=== PATIENT | female | born 1955 | race Caucasian/White ===

== ENCOUNTER 2017-03-15 08:49 | Emergency (ER) | payer SELFPAY ==
[~2017-03-15] VITALS: Ht 152.4 cm; Wt 71.0 kg
[~2017-03-15 08:49] MED LIST: ASPI-664 PO; METO-429 PO; RANO500T2 PO
[2017-03-15 08:51] VITALS: Ht 152.4 cm; Wt 71.0 kg
[2017-03-15 09:21] LABS: URINE BLOOD (Dip) POC 3+ (NEGATIVE)
[2017-03-15] MEDS ORDERED: SUMA100T9 PO (09:22)
[2017-03-15] MEDS ORDERED: ONDANSETRON 4 MG INJ IV STA (09:37)
[2017-03-15] MEDS ORDERED: morphine 2 MG INJ IV STA (09:37)
[2017-03-15] MEDS ORDERED: SOD CHLORIDE 0.9% 1,000 ML IV STA (09:37)
[2017-03-15 09:46] LABS: ADD UMIC YES; URINE BILIRUBIN (Dip) NEGATIVE (NEGATIVE); URINE BLOOD (Dip) 3+ (NEGATIVE); URINE COLOR DK. RED (YELLOW); URINE GLUCOSE (Dip) NEGATIVE (NEGATIVE); URINE KETONES (Dip) TRACE (NEGATIVE); URINE LEUKOCYTE ESTERASE (Dip) 2+ (NEGATIVE); URINE NITRITE (Dip) POSITIVE (NEGATIVE); URINE TOTAL PROTEIN (Dip) 4+ (NEGATIVE); URINE UROBILINOGEN (Dip) 1.0 E.U./dL (0.1-1.0)
[2017-03-15 09:55] LABS: ADD SCAN DIFF NO
[2017-03-15 09:57] LABS: BASOPHILS % 0.3 % (0.0-2.0); EOSINOPHILS # 0.1 10^3/ul (0.0-0.5); EOSINOPHILS % 1.1 % (0.0-7.0); HEMATOCRIT 36.3 % (37.0-47.0); HEMOGLOBIN 12.2 g/dl (12.0-16.0); LYMPHOCYTES # 1.3 10^3/ul (0.8-2.9); LYMPHOCYTES % 17.2 % (15.0-51.0); MEAN CORPUSCULAR HEMOGLOBIN 33.3 pg (29.0-33.0); MEAN CORPUSCULAR HGB CONC 33.6 g/dl (32.0-37.0); MEAN CORPUSCULAR VOLUME 99.2 fl (82.0-101.0); MEAN PLATELET VOLUME 10.2 fl (7.4-10.4); MONOCYTE # 0.2 10^3/ul (0.3-0.9); MONOCYTES % 3.3 % (0.0-11.0); NEUTROPHIL # 5.7 10^3/ul (1.6-7.5); NEUTROPHILS % 77.8 % (39.0-77.0); PLATELET COUNT 248 10^3/UL (140-415); RED BLOOD COUNT 3.66 10^6/ul (4.20-5.40); RED CELL DISTRIBUTION WIDTH 11.5 % (11.5-14.5); WHITE BLOOD COUNT 7.3 10^3/ul (4.8-10.8)
[2017-03-15 09:57] LABS: BACTERIA,URINE FEW; URINE RBCS >200 /HPF (0)
[2017-03-15 10:16] LABS: ALBUMIN 4.6 g/dl (3.3-4.9); ALBUMIN/GLOBULIN RATIO 1.64; BILIRUBIN,INDIRECT 0.2 mg/dl (0-1.1); BILIRUBIN,TOTAL 0.2 mg/dl (0.2-1.3); CALCIUM 9.1 mg/dl (8.4-10.2); CREATININE 0.88 mg/dl (0.44-1.00); TOTAL PROTEIN 7.4 g/dl (6.1-8.1)
[2017-03-15] MEDS ORDERED: DICLOFENAC SODIUM 37.5 MG/ML VIAL IV STA (10:40)
[2017-03-15] MEDS ORDERED: IOHEXOL 300MG/ML 150 ML BTL ONE (11:04)
[2017-03-15] MEDS ORDERED: SOD CHLORIDE 0.9% 100 ML ONE (11:04)
[2017-03-15] MEDS ORDERED: CEFTRIAXONE 1 GM/50 ML (PMX) 50 ML IVPB ONE (11:30)
--- NOTE | 2017-03-15 11:50 | RADRPT ---
PROCEDURE: CT Abdomen and Pelvis without and with contrast. CLINICAL INDICATION: Right flank pain with hematuria. History of stones. TECHNIQUE: CT scan of the abdomen and pelvis with and without contrast was performed on a multidet pepito high-resolution CT scanner. The patient was scanned both before and following the uncomplicat ed intravenous administration of 100 cc of Omnipaque-300. Coronal and sagittal reformatted images we re obtained from the axial source images. Images were reviewed on a high-resolution PACS workstation . The total exam CTDI equals 16.45, and 15.49 mGy and the total exam DLP equals 1794.52 mGy-cm. One or more of the following dose reduction techniques were used: Automated exposure control. Adjustment of the mA and/or kV according to patient size. Use of iterative reconstruction technique. COMPARISON: None. FINDINGS: CT abdomen: The lung bases are clear. The heart size is normal, without pericardial thickening or effusion. Th e liver is normal in size and density without focal mass or intrahepatic biliary dilatation. The sp regi is normal in size and homogeneous in density. The stomach is partially collapsed, but is gross ly unremarkable. The pancreas as visualized is normal. The gallbladder is surgically absent. There is mild prominence of the intrahepatic and extrahepatic biliary ducts. Common bile duct measures u p to 9 mm. The adrenal glands are symmetric and normal. The kidneys are symmetrically unremarkable as well. No renal calculus or obstructive uropathy or mass lesion is seen. The aorta is of normal caliber. There is no retroperitoneal lymphadenopathy. The riya hepatis reg ion is clear. The bowel and mesentery, as visualized, are equally unremarkable. CT pelvis: The small bowel loops situated within the pelvis are unremarkable. There is a retroverted uterus. T here is mild abnormal wall thickening and enhancement of the urinary bladder. The pelvic sidewalls a nd inguinal regions are clear. The sigmoid colon and rectum are unremarkable. No mass, lymphadenop athy, or free fluid is seen. No acute inflammation is seen. There is grade 1 anterolisthesis of L4 on L5 related to marked facet arthropathy. There is severe right-sided neural foraminal stenosis at L4-L5 related to disk herniation. The surrounding osseous structures are remarkable for degenerativ e spondylosis of the spine. No osteolytic or osteoblastic lesion is detected. IMPRESSION: 1. No urolithiasis. No hydronephrosis. 2. Mild abnormal wall thickening of the urinary bladder which is accentuated by the under distension . This is nonspecific but can be seen with cystitis. 3. Mild prominence of the biliary tree which could be physiologic status post cholecystectomy. 4. Mild anterolisthesis of L4 on L5 related to marked facet arthropathy. There is a broad-based ri ght foraminal disk protrusion with probable mass effect upon the traversing right L5 nerve root and impingement upon the exiting right L4 nerve root in the neural foramen. Consider MRI L-spine for fu rther evaluation. RPTAT: BB .Silvia Jones MD, MD Date Time Electronically viewed and signed by .Silvia Jones MD, MD on 03/15/2017 11:49 .O/
[2017-03-15] MEDS ORDERED: CIPR500T4 PO (13:13)
[2017-03-15] MEDS ORDERED: PHEN-537 PO (13:13)
[2017-03-15] MEDS ORDERED: HYDR-906 PO (13:13)
[2017-03-15] MEDS ORDERED: NAPR-688 PO (13:13)
--- NOTE | 2017-03-15 13:38 | ERD ---
ER Documentation Chief Complaint Date/Time DATE: 03/15/17 TIME: 13:32 Chief Complaint LOWER ABDOMINAL PAIN STARTED YESTERDAY; BACK PAIN X 4 MONTHS HPI This 61-year-old female presents emergency room with suprapubic pain and urinary frequency. She also has burning on urination. She has right flank pain with a history of kidney stones as well. Denies fever and chills. She has no nausea and has not vomited. ROS All systems reviewed and are negative except as per history of present illness. Medications Home Meds Active Scripts Hydrocodone/Acetaminophen ([place] 5-325 Tablet) 1 Each Tablet, 1 EACH PO Q6, #14 TAB Prov:CLEMENTINA ELLIOTT DO 03/15/17 Naproxen* (Naproxen*) 500 Mg Tablet, 500 MG PO BID Y for PAIN, #20 TAB Prov:CLEMENTINA ELLIOTT DO 03/15/17 Phenazopyridine Hcl* (Pyridium*) 100 Mg Tab, 100 MG PO TID Y for URINARY PAIN, # 8 TAB Prov:EARLCLEMENTINA DO 03/15/17 Ciprofloxacin Hcl* (Ciprofloxacin Hcl*) 500 Mg Tablet, 500 MG PO BID for 10 Days , TAB Prov:CLEMENTINA ELLIOTT DO 03/15/17 Reported Medications Sumatriptan Succinate* (Imitrex*) 100 Mg Tablet, 100 MG PO BID Y for MIGRAINE HEADACHE, TAB May repeat after 2 hours if needed; MAX 200 mg/24 hours 03/15/17 Aspirin* (Aspirin* EC) 81 Mg Tablet.dr, 81 MG PO DAILY, TAB 04/13/16 Metoprolol Tartrate* (Lopressor*) 50 Mg Tab, 50 MG PO BID, #60 TAB 04/13/16 Discontinued Scripts Ranolazine* (Ranexa*) 500 Mg Tab.sr.12h, 500 MG PO Q12 for 30 Days, TAB Prov:CANDY WHEELER 04/14/16 Allergies Allergies: Coded Allergies: Tetracyclines (Verified Allergy, Unknown, 03/15/17) dopamine (Verified Allergy, Unknown, 03/15/17) PMhx/Soc History of Surgery: Yes (CHOLECYSTECTOMY, HERNIA REPAIR) Anesthesia Reaction: No Hx Neurological Disorder: No Hx Respiratory Disorders: No Hx Cardiac Disorders: No Hx Psychiatric Problems: No Hx Miscellaneous Medical Probl: Yes (KIDNEY STONE 4 YRS AGO) Hx Alcohol Use: No Hx Substance Use: No Hx Tobacco Use: No Smoking Status: Never smoker Physical Exam Vitals Vital Signs Date Time Temp Pulse Resp B/P Pulse Ox O2 Delivery O2 Flow Rate FiO2 03/15/17 08:51 98.2 83 19 136/81 100 Physical Exam Const: [] Head: Atraumatic Eyes: Normal Conjunctiva ENT: Normal External Ears, Nose and Mouth. Neck: Full range of motion..~ No meningismus. Resp: Clear to auscultation bilaterally Cardio: Regular rate and rhythm, no murmurs Abd: Soft, non tender, non distended. Normal bowel sounds Skin: No petechiae or rashes Back: No midline or flank tenderness Ext: No cyanosis, or edema Neur: Awake and alert Psych: Normal Mood and Affect Result Diagram: 03/15/1736 03/15/17 0936 Results 24 hrs Laboratory Tests Test 03/15/17 09:15 03/15/17 09:24 03/15/17 09:36 Urine Color DK. RED Urine Clarity CLOUDY Urine pH 7.5 Urine Specific [place] 1.015 Urine Ketones TRACE Urine Nitrite POSITIVE Urine Bilirubin NEGATIVE Urine Urobilinogen 1.0 E.U./dL Urine Leukocyte Esterase 2+ Urine Microscopic RBC >200/HPF Urine Microscopic WBC 2-5/HPF Urine Epithelial Cells FEW Urine Bacteria FEW Urine Hemoglobin 3+ Urine Glucose NEGATIVE% Urine Total Protein 4+ Bedside Urine pH (LAB) 7.0 Bedside Urine Protein (LAB) 3+ Bedside Urine Glucose (UA) Negative Bedside Urine Ketones (LAB) Trace Bedside Urine Blood 3+ Bedside Urine Nitrite (LAB) Positive Bedside Urine Leukocyte Esterase (L Trace White Blood Count 7.310^3/ul Red Blood Count 3.6610^6/ul Hemoglobin 12.2g/dl Hematocrit 36.3% Mean Corpuscular Volume 99.2fl Mean Corpuscular Hemoglobin 33.3pg Mean Corpuscular Hemoglobin Concent 33.6g/dl Red Cell Distribution Width 11.5% Platelet Count 78493^3/UL Mean Platelet Volume 10.2fl Neutrophils % 77.8% Lymphocytes % 17.2% Monocytes % 3.3% Eosinophils % 1.1% Basophils % 0.3% Nucleated Red Blood Cells % 0.0/100WBC Neutrophils # 5.710^3/ul Lymphocytes # 1.310^3/ul Monocytes # 0.210^3/ul Eosinophils # 0.110^3/ul Basophils # 0.010^3/ul Nucleated Red Blood Cells # 0.010^3/ul Sodium Level 142mmol/L Potassium Level 4.0mmol/L Chloride Level 105mmol/L Carbon Dioxide Level 29mmol/L Anion Gap 12 Blood Urea Nitrogen 20mg/dl Creatinine 0.88mg/dl Glucose Level 97mg/dl Lactic Acid Level 1.3mmol/L Calcium Level 9.1mg/dl Total Bilirubin 0.2mg/dl Direct Bilirubin 0.00mg/dl Indirect Bilirubin 0.2mg/dl Aspartate Amino Transf (AST/SGOT) 24IU/L Alanine Aminotransferase (ALT/SGPT) 32IU/L Alkaline Phosphatase 79IU/L Total Protein 7.4g/dl Albumin 4.6g/dl Globulin 2.80g/dl Albumin/Globulin Ratio 1.64 Lipase 76U/L Current Medications Medications (Trade) Dose Ordered Sig/Natividad Route PRN Reason Start Time Stop Time Status Last Admin Dose Admin Sodium Chloride (NS) 1,000 ml @ 1,000 mls/hr Q1H STAT IV 03/15/17 09:37 03/15/17 10:36 DC 03/15/17 09:49 Morphine Sulfate (morphine) 2 mg ONCE STAT IV 03/15/17 09:37 03/15/17 09:39 DC 03/15/17 09:49 Ondansetron HCl (Zofran Inj) 4 mg ONCE STAT IV 03/15/17 09:37 03/15/17 09:39 DC 03/15/17 09:49 Diclofenac Sodium 37.5 mg 37.5 mg ONCE STAT IV 03/15/17 10:40 03/15/17 10:41 DC 03/15/17 11:08 Ceftriaxone Sodium (Rocephin) 50 ml @ 100 mls/hr ONCE ONCE IVPB 03/15/17 11:30 03/15/17 11:59 DC 03/15/17 11:52 Procedures/MDM Pyelonephritis with confirm gallbladder wall thickening on CAT scan. No evidence of urinary stones. Also incidentally has lumbar disc bulge that the patient was not aware of. She was given normal saline as well as morphine and dilated jacked for pain in the emergency room this helped her pain significantly. Spoke to her regarding the CAT scan results about the disc bulge and told her that I recommended that she see her primary care doctor in the next 2 days and get a referral for an MRI. Discharging with [place], naproxen , Pyridium, ciprofloxacin for 10 days. I believe she is very appropriate for outpatient management her pyelonephritis. Urine culture was taken. She has no symptoms of cauda equina syndrome with no saddle anesthesia or leg weakness peer CT abdomen pelvis interpretation: Bladder wall thickening, lumbar disc bulge with cord compression, no obstruction, no free air, no abnormal fat stranding, no fractures. Departure Diagnosis: Primary Impression: Herniated lumbar intervertebral disc Additional Impression: Pyelonephritis Condition: Stable Patient Instructions: Pyelonephritis, Female (Adult), Herniated Intervertebral Disc Additional Instructions: Llame al doctor MAANA y edith flor MALORIE PARA DENTRO DE 2-3 DAVIS.Dgale a la secretaria que nosotros le instruimos hacer esta malorie.Avise o llame si joshi condicin se empeora antes de la malorie. Regresa aqui si peor o no mejor. CLEMENTINA ELLIOTT DO Mar 15, 2017 13:38
[2017-03-15 13:43] VITALS: BP 119/69; PULSE 66; RESP 18
== END 2017-03-15 13:45 | disposition home or self-care (01) ==
LOC: E/R 08:49
DX: M51.36 Other intervertebral disc degeneration, lumbar region (principal); N12 Tubulo-interstitial nephritis, not specified as acute or chronic; Z79.82 Long term (current) use of aspirin
CPT/HCPCS: 74178; 80053; 81001; 83605; 83690; 85025; 87086; J0696; J2270; J2405; J7030; Q9967; 36415; 81003; 96374; 96375

== ENCOUNTER 2017-05-28 06:51 | Emergency (ER) | payer BC ==
[~2017-05-28] VITALS: Ht 160 cm; Wt 75.0 kg
[~2017-05-28 06:51] MED LIST changes: +CIPR500T4 PO; +HYDR-906 PO; +NAPR-688 PO; +PHEN-537 PO; -RANO500T2 PO; +SUMA100T9 PO
[2017-05-28 06:54] VITALS: Ht 160 cm; Wt 75.0 kg
[2017-05-28] MEDS ORDERED: ONDANSETRON (ODT) 4 MG TAB ODT STA (07:13)
[2017-05-28] MEDS ORDERED: HYDROmorphONE 2 MG/ML SYG IM STA (07:13)
[2017-05-28] MEDS ORDERED: DIAZEPAM 5 MG TAB PO ONE (07:30)
--- NOTE | 2017-05-28 07:49 | ERD ---
ER Documentation Chief Complaint Date/Time DATE: 05/28/17 TIME: 07:44 Chief Complaint back pain HPI This is a 62-year-old female with a known history of low lower back pain due to herniated disks of L4-L5 and S1. The patient had an MRI which he presented with performed April 14, 2017 roughly 1 month prior to arrival. The patient indicates that 48 hours prior to arrival while making her bed she had a sudden onset of severe right flank pain that radiated to the buttocks and the lateral aspect of the right lower extremity. She states this is similar nature to her previous episodes of back pain. She took diclofenac for pain but there is no improvement. She indicates the pain is exacerbated with ambulation and intermittent muscle spasms. She states the pain is relieved when she lies supine. She has had no fevers or shaking or chills. She denies any saddle anesthesia. She denies any changes in her bladder or bowel frequency. She denies any lower abdominal pain. ROS All systems reviewed and are negative except as per history of present illness. Medications Home Meds Active Scripts Hydrocodone/Acetaminophen ([place] 5-325 Tablet) 1 Each Tablet, 1 EACH PO Q6, #14 TAB Prov:CLEMENTINA ELLIOTT DO 03/15/17 Naproxen* (Naproxen*) 500 Mg Tablet, 500 MG PO BID Y for PAIN, #20 TAB Prov:CLEMENTINA ELLIOTT DO 03/15/17 Phenazopyridine Hcl* (Pyridium*) 100 Mg Tab, 100 MG PO TID Y for URINARY PAIN, # 8 TAB Prov:CLEMENTINA ELLIOTT DO 03/15/17 Ciprofloxacin Hcl* (Ciprofloxacin Hcl*) 500 Mg Tablet, 500 MG PO BID for 10 Days , TAB Prov:CLEMENTINA ELLIOTT DO 03/15/17 Reported Medications Sumatriptan Succinate* (Imitrex*) 100 Mg Tablet, 100 MG PO BID Y for MIGRAINE HEADACHE, TAB May repeat after 2 hours if needed; MAX 200 mg/24 hours 03/15/17 Aspirin* (Aspirin* EC) 81 Mg Tablet.dr, 81 MG PO DAILY, TAB 04/13/16 Metoprolol Tartrate* (Lopressor*) 50 Mg Tab, 50 MG PO BID, #60 TAB 04/13/16 Allergies Allergies: Coded Allergies: Tetracyclines (Verified Allergy, Unknown, 03/15/17) dopamine (Verified Allergy, Unknown, 03/15/17) PMhx/Soc History of Surgery: Yes (CHOLECYSTECTOMY, HERNIA REPAIR) Anesthesia Reaction: No Hx Neurological Disorder: No Hx Respiratory Disorders: No Hx Cardiac Disorders: No Hx Psychiatric Problems: No Hx Miscellaneous Medical Probl: Yes (KIDNEY STONE 4 YRS AGO) Hx Alcohol Use: No Hx Substance Use: No Hx Tobacco Use: No Smoking Status: Never smoker Physical Exam Vitals Vital Signs Date Time Temp Pulse Resp B/P Pulse Ox O2 Delivery O2 Flow Rate FiO2 05/28/17 06:54 97.9 73 18 140/79 99 Physical Exam Constitutional:Well-developed. Well-nourished. HEENT:Normocephalic. Atraumatic.Pupils were equal round reactive to light. Moist mucous membranes.No tonsillar exudates. Neck: No nuchal rigidity. No lymphadenopathy. No posterior cervical spine tenderness or step-offs. Respiratory: Not using accessory muscles of respiration.Lungs were clear to auscultation bilaterally. No rhonchi. No rales. No wheezing. Cardiovascular: Regular rate regular rhythm.No murmurs. No rubs were appreciated.S1, S2 normal. Distal pulses are palpable 2+ bilaterally. GI: Abdomen was soft. Nontender. Non Distended. No pulsatile abdominal masses or bruits. No rebound. No guarding. Bowel sounds were present and normal. Muscle skeletal: Full range of motion of both the upper and lower extremities bilaterally.Normal muscle tone.No assymetrical calf tenderness or swelling. Reproducible tenderness with palpation over L4-L5 and the right paralumbar region. Straight leg test positive on the right. Skin: No petechia, no purpura. No lesions on the palms or the soles of the feet. No maculopapular rash. NEURO: Patient was alert, awake, orientated x3.No facial droop. Gait observed and normal with no ataxia.Speech had regular rate and rhythm. No focal neurological deficits. Results 24 hrs Current Medications Medications (Trade) Dose Ordered Sig/Natividad Route PRN Reason Start Time Stop Time Status Last Admin Dose Admin Hydromorphone HCl (Dilaudid) 2 mg ONCE STAT IM 05/28/17 07:13 05/28/17 07:16 DC 05/28/17 07:29 Ondansetron HCl (Zofran Odt) 4 mg ONCE STAT ODT 05/28/17 07:13 8/27/17 07:16 DC 05/28/17 07:28 Diazepam (Valium) 10 mg ONCE ONCE PO 05/28/17 07:30 05/28/17 07:31 DC 05/28/17 07:28 Procedures/MDM The patient presented to the emergency department with back pain. My differential diagnosis included but was not limited to spinal origins of the pain such as fracture, osteomyelitis, epidural abscess, neoplasm, spondylolishtesis, discogenic, cauda equina syndrome or musculoligamentous. Nonspinal causes such as AAA, upper UTI, renal colic, aortic dissection, abdominal neoplasm were also considered as an etiology into their pain. The patient had a recent MRI performed and at this time did not have any physical exam findings to suggest cauda equina syndrome. The patient received IM Dilaudid oral Zofran and Valium. The patient's pain had improved and she will be discharged home with analgesic medication muscle relaxants and a Medrol Dosepak. The patient was discharged home in fair condition. They were instructed to return to the emergency department at any time if there was any worsening of their condition. The patient stated they would follow up with their PCP in the next 24-48 hours to initiate a suitable medication regimen under the care of their PCP as well as to allow their PCP to monitor any drug reactions. The patient was discharged home with prescriptions after they gave informed consent to the new medication. They were also fully informed by myself on the adverse effects and adverse drug interactions in order to provide adequate safeguards to prevent possible adverse reactions to medications. Departure Diagnosis: Primary Impression: Sciatica of right side Condition: DONITA Montgomery May 28, 2017 07:49
[2017-05-28] MEDS ORDERED: MED4DP PO (07:50)
[2017-05-28] MEDS ORDERED: HYDR-906 PO (07:50)
[2017-05-28] MEDS ORDERED: DOCU-144 PO (07:50)
[2017-05-28] MEDS ORDERED: DIAZ-90 PO (07:50)
== END 2017-05-28 09:24 | disposition home or self-care (01) ==
LOC: FTE 06:51
DX: M54.41 Lumbago with sciatica, right side (principal); Z79.82 Long term (current) use of aspirin
CPT/HCPCS: 96372; 99284; J1170

== ENCOUNTER 2017-06-03 18:42 | Emergency (ER) | payer SELFPAY ==
[~2017-06-03] VITALS: Ht 167.6 cm; Wt 70.9 kg
[~2017-06-03 18:42] MED LIST changes: +DIAZ-90 PO; +DOCU-144 PO; +MED4DP PO
[2017-06-03 18:48] VITALS: Ht 167.6 cm; Wt 70.9 kg
--- NOTE | 2017-06-03 19:53 | ERD ---
ER Documentation Chief Complaint Date/Time DATE: 06/03/17 TIME: 19:53 Chief Complaint INCREASING RT SIDE SCIATICA PAIN RADIATING TO RIGHT LEG HPI 62-year-old female presents here in emergency department for complaints of right side lower back pain radiated to the right lower leg that started a few months ago, worse today. Patient was seen here 5 days ago for the same problem, was given pain medications, it has only helped mildly. Is currently taking [place] and Valium at home was given prescription for Percocet but was not able to fill it. Patient denies any reinjury. Patient denies any incontinence. Patient denies any fever or chills. Patient describes the pain as sharp pain, 9/ 10 scale, radiates from the right lower back and the right lower leg. Patient had radiology exams done showing the degenerative disc disease and herniated disks. Patient denies any reinjury. ROS All systems reviewed and are negative except as per history of present illness. Medications Home Meds Active Scripts Methylprednisolone* (Medrol* DOSE PACK) 4 Mg/Dose-Pack Tab.ds.pk, 4 MG PO . DIRECTED, #1 PACKET Prov:DONITA GTZ 05/28/17 Docusate Sodium* (Colace*) 100 Mg Capsule, 100 MG PO TID, #30 CAP Prov:DONITA GTZ 05/28/17 Hydrocodone/Acetaminophen ([place] 5-325 Tablet) 1 Each Tablet, 1 TAB PO Q6H Y for PAIN, #20 TAB Prov:DONITA GTZ 05/28/17 Diazepam* (Valium*) 5 Mg Tablet, 5 MG PO Q8 Y for MUSCLE SPASMS, #12 TAB Prov:DONITA GTZ 05/28/17 Hydrocodone/Acetaminophen ([place] 5-325 Tablet) 1 Each Tablet, 1 EACH PO Q6, #14 TAB Prov:LCEMENTINA ELLIOTT DO 03/15/17 Naproxen* (Naproxen*) 500 Mg Tablet, 500 MG PO BID Y for PAIN, #20 TAB Prov:CLEMENTINA ELLIOTT DO 03/15/17 Phenazopyridine Hcl* (Pyridium*) 100 Mg Tab, 100 MG PO TID Y for URINARY PAIN, # 8 TAB Prov:CLEMENTINA ELLIOTT DO 03/15/17 Ciprofloxacin Hcl* (Ciprofloxacin Hcl*) 500 Mg Tablet, 500 MG PO BID for 10 Days , TAB Prov:CLEMENTINA ELLIOTT DO 03/15/17 Reported Medications Sumatriptan Succinate* (Imitrex*) 100 Mg Tablet, 100 MG PO BID Y for MIGRAINE HEADACHE, TAB May repeat after 2 hours if needed; MAX 200 mg/24 hours 03/15/17 Aspirin* (Aspirin* EC) 81 Mg Tablet.dr, 81 MG PO DAILY, TAB 04/13/16 Metoprolol Tartrate* (Lopressor*) 50 Mg Tab, 50 MG PO BID, #60 TAB 04/13/16 Allergies Allergies: Coded Allergies: Tetracyclines (Verified Allergy, Unknown, 06/03/17) dopamine (Verified Allergy, Unknown, 06/03/17) PMhx/Soc History of Surgery: Yes (CHOLECYSTECTOMY, HERNIA REPAIR) Anesthesia Reaction: No Hx Neurological Disorder: No Hx Respiratory Disorders: No Hx Cardiac Disorders: No Hx Psychiatric Problems: No Hx Miscellaneous Medical Probl: Yes (KIDNEY STONE 4 YRS AGO) Hx Alcohol Use: No Hx Substance Use: No Hx Tobacco Use: No FmHx Family History: No coronary disease, No diabetes, No other Physical Exam Vitals Vital Signs Date Time Temp Pulse Resp B/P Pulse Ox O2 Delivery O2 Flow Rate FiO2 06/03/17 18:48 99.4 84 26 154/79 98 Physical Exam GENERAL: The patient is well developed and appropriate for usual state of health, in no apparent distress. CHEST: Clear to auscultation bilaterally. There are no rales, wheezes or rhonchi. HEART: Regular rate and rhythm. No murmurs, clicks, rubs or gallops. No S3 or S4. ABDOMEN: Soft, nontender and nondistended. Good bowel sounds. No rebound or guarding. No gross peritonitis. No gross organomegaly or masses. No Alvarez sign or McBurney point tenderness. BACK: No midline or flank tenderness.positive straight leg test EXTREMITIES: Equal pulses bilaterally. There is no peripheral clubbing, cyanosis or edema. No focal swelling or erythema. Full range of motion. Grossly neurovascularly intact. NEURO: Alert and oriented. Cranial nerves 2-12 intact. Motor strength in all 4 extremities with 5/5 strength. Sensation grossly intact. Normal speech and gait. SKIN: There is no apparent rash or petechia. The skin is warm and dry. HEMATOLOGIC AND LYMPHATIC: There is no evidence of excessive bruising or lymphedema. No gross cervical, axillary, or inguinal lymphadenopathy. Results 24 hrs Current Medications Medications (Trade) Dose Ordered Sig/Natividad Route PRN Reason Start Time Stop Time Status Last Admin Dose Admin Morphine Sulfate (morphine) 6 mg ONCE ONCE IM 06/03/17 20:30 06/03/17 20:31 06/03/17 20:10 Diazepam (Valium) 10 mg ONCE ONCE PO 06/03/17 20:30 06/03/17 20:31 06/03/17 20:09 Ondansetron HCl (Zofran Odt) 4 mg ONCE STAT ODT 06/03/17 20:01 06/03/17 20:02 DC 06/03/17 20:09 Patient was given medication for pain here in emergency department, after treatment, patient verbalized feeling much better. Patient's pain is improved. PROCEDURE: CT Abdomen and Pelvis without and with contrast. CLINICAL INDICATION: Right flank pain with hematuria. History of stones. TECHNIQUE: CT scan of the abdomen and pelvis with and without contrast was performed on a multidetector high-resolution CT scanner. The patient was scanned both before and following the uncomplicated intravenous administration of 100 cc of Omnipaque-300. Coronal and sagittal reformatted images were obtained from the axial source images. Images were reviewed on a high- resolution PACS workstation. The total exam CTDI equals 16.45, and 15.49 mGy and the total exam DLP equals 1794.52 mGy-cm. One or more of the following dose reduction techniques were used: Automated exposure control. Adjustment of the mA and/or kV according to patient size. Use of iterative reconstruction technique. COMPARISON: None. FINDINGS: CT abdomen: The lung bases are clear. The heart size is normal, without pericardial thickening or effusion. The liver is normal in size and density without focal mass or intrahepatic biliary dilatation. The spleen is normal in size and homogeneous in density. The stomach is partially collapsed, but is grossly unremarkable. The pancreas as visualized is normal. The gallbladder is surgically absent. There is mild prominence of the intrahepatic and extrahepatic biliary ducts. Common bile duct measures up to 9 mm. The adrenal glands are symmetric and normal. The kidneys are symmetrically unremarkable as well. No renal calculus or obstructive uropathy or mass lesion is seen. The aorta is of normal caliber. There is no retroperitoneal lymphadenopathy. The riya hepatis region is clear. The bowel and mesentery, as visualized, are equally unremarkable. CT pelvis: The small bowel loops situated within the pelvis are unremarkable. There is a retroverted uterus. There is mild abnormal wall thickening and enhancement of the urinary bladder. The pelvic sidewalls and inguinal regions are clear. The sigmoid colon and rectum are unremarkable. No mass, lymphadenopathy, or free fluid is seen. No acute inflammation is seen. There is grade 1 anterolisthesis of L4 on L5 related to marked facet arthropathy. There is severe right-sided neural foraminal stenosis at L4-L5 related to disk herniation. The surrounding osseous structures are remarkable for degenerative spondylosis of the spine. No osteolytic or osteoblastic lesion is detected. IMPRESSION: 1. No urolithiasis. No hydronephrosis. 2. Mild abnormal wall thickening of the urinary bladder which is accentuated by the under distension. This is nonspecific but can be seen with cystitis. 3. Mild prominence of the biliary tree which could be physiologic status post cholecystectomy. 4. Mild anterolisthesis of L4 on L5 related to marked facet arthropathy. There is a broad-based right foraminal disk protrusion with probable mass effect upon the traversing right L5 nerve root and impingement upon the exiting right L4 nerve root in the neural foramen. Consider MRI L-spine for further evaluation. RPTAT: BB .Silvia Jones MD, MD Date Time Electronically viewed and signed by .Silvia Jones MD, MD on 03/15/2017 11:49 .O/ CC: CLEMENTINA ELLIOTT DO Procedures/MDM Medical Decision Making: Patient's pain is most likely consistent with a back Pain caused by degenerative disc disease and sciatica. There is no suspicion for neurovascular compromise. Patient has intact sensation and circulation of the affected extremity and distal extremities. No incontinence, no suspicion for cauda equina syndrome, no saddle anesthesia, no symptoms of any acute bacterial infection, no symptoms of any perirectal abscesses, pilonidal cyst.There is low suspicion for septic arthritis. Patient does not have any fever. No symptoms of any aortic dissection or aortic aneurysm. Repeat Radiology exam not indicated at this time. Disposition: Home. Patient Advised to continue medications given to her including Valium, and for prescriptions of Percocet given to her . Patient was advised to avoid heavy lifting , apply warm compresses on affected area. Patient was advised that if symptoms are worse, numbness, tingling, high fever, unable to move joint, worsening symptoms, to return to emergency department immediately. Otherwise, patient is advised to follow up with the primary care doctor in 5-7 days for reevaluation of symptoms. Departure Diagnosis: Primary Impression: Back pain Back pain location: low back pain Chronicity: acute Back pain laterality: right Sciatica presence: with sciatica Sciatica laterality: sciatica of right side Qualified Code: M54.41 - Acute right-sided low back pain with right -sided sciatica Condition: Stable Patient Instructions: Back Pain W/ Sciatica ALON TREVINO NP Jun 03, 2017 19:53
[2017-06-03] MEDS ORDERED: ONDANSETRON (ODT) 4 MG TAB ODT STA (20:01)
[2017-06-03] MEDS ORDERED: morphine 10 MG INJ IM ONE (20:30)
[2017-06-03] MEDS ORDERED: DIAZEPAM 5 MG TAB PO ONE (20:30)
[2017-06-03 20:44] VITALS: BP 148/78; PULSE 79; RESP 20
== END 2017-06-03 20:47 | disposition home or self-care (01) ==
LOC: FTE 18:42
DX: M54.41 Lumbago with sciatica, right side (principal); Z79.82 Long term (current) use of aspirin
CPT/HCPCS: 96372; 99284; J2270